=== PATIENT | male | born 1940 | race Hispanic/Latino ===

== ENCOUNTER 2021-03-19 22:20 | Inpatient (IN) | payer OTHER ==
[~2021-03-19] VITALS: Ht 91.4 cm; Wt 68.2 kg
[~2021-03-19 22:20] MED LIST: ASCO100031 PO; ASPI81TA40 PO; FERS325 PO; FISH1CAP63 PO; LEVO500T89 PO; NITR100C9 PO; OLME5TAB6 PO; OMEG100014 PO; SIMV-43 PO
[2021-03-19 23:05] LABS: BASOPHILS % (AUTO) 0.5 % (0.0-5.0); EOSINOPHILS % (AUTO) 2.1 % (0.0-8.0); HEMATOCRIT 26.4 % (42-54); LYMPHOCYTES % (AUTO) 11.3 % (21.0-51.0); MEAN CORPUSCULAR HEMOGLOBIN 30.4 pg (27.0-33.0); MEAN CORPUSCULAR HGB CONC 33.7 g/dL (32.0-36.0); MEAN CORPUSCULAR VOLUME 90.1 fL (79-99); MONOCYTES % (AUTO) 10.3 % (3.0-13.0); NEUTROPHILS % (AUTO) 75.5 % (40.0-77.0); PLATELET COUNT (AUTO) 40 K/uL (130-400); RED BLOOD CELL COUNT(AUTO) 2.93 MIL/uL (4.50-6.20); RED CELL DISTRIBUTION WIDTH 15.3 % (11.0-15.5); WHITE BLOOD COUNT (AUTO) 6.5 K/uL (4.8-10.8)
[2021-03-19 23:06] LABS: APPEARANCE,URINE CLOUDY (CLEAR); BILIRUBIN,URINE LARGE (NEGATIVE); COLOR,URINE RED (YELLOW); GLUCOSE, URINE (UA) 250 mg/dL (NEGATIVE); KETONES,URINE 40 mg/dL (NEGATIVE); LEUKOCYTE ESTERASE ,URINE LARGE (NEGATIVE); NITRATE,URINE POSITIVE (NEGATIVE); OCCULT BLOOD,URINE LARGE (NEGATIVE); PH,URINE 7.5 (5.0-8.0); PROTEIN,URINE >=300 mg/dL (NEGATIVE); UROBILINOGEN,URINE >=8.0 mg/dL (0.2-1.0)
[2021-03-19 23:14] LABS: RBC,URINE TNTC /HPF (0-1)
[2021-03-19 23:14] LABS: CREATININE 0.7 mg/dL (0.5-1.5); POTASSIUM 4.1 mmol/L (3.5-5.1)
[2021-03-19 23:15] LABS: BACTERIA,URINE Few /HPF (None Seen)
[2021-03-19 23:17] LABS: INR 1.06 (0.85-1.15); PROTHROMBIN TIME 11.5 SEC (9.6-11.6)
[2021-03-19 23:18] LABS: PARTIAL THROMBOPLASTIN TIME 37.5 SEC (26.3-35.5)
[2021-03-19 23:20] LABS: ALBUMIN 3.1 g/dL (3.5-5.0); BILIRUBIN,TOTAL 0.4 mg/dL (0.2-1.0); TOTAL PROTEIN, SERUM 6.1 g/dL (6.0-8.3)
[2021-03-20 03:15] LABS: HEMATOCRIT 24.8 % (42-54)
[2021-03-20] MEDS ORDERED: 0.9%NACL 1000ML 1,000 ML IV SCH (08:00)
[2021-03-20] MEDS ORDERED: OLME5TAB6 PO (08:28)
[2021-03-20] MEDS ORDERED: ASCO500C18 PO (08:28)
[2021-03-20] MEDS ORDERED: FERR-72 PO (08:28)
[2021-03-20] MEDS ORDERED: SIMV-43 PO (08:28)
[2021-03-20] MEDS ORDERED: ASPI-1443 PO (08:28)
[2021-03-20] MEDS: CEFTRIAXONE 1G VIAL IVP SCH (08:56)
[2021-03-20 08:59] LABS: HEMATOCRIT 21.8 % (42-54)
[2021-03-20] MEDS ORDERED: 0.9%NACL 1000ML 250 ML IV SCH (09:02)
[2021-03-20] MEDS ORDERED: 0.9%NACL 1000ML 1,000 ML IV STA (09:33)
[2021-03-20] MEDS ORDERED: NOREPINEPHRIN 4MG/NS 250ML 250 ML IV SCH (10:00)
[2021-03-20] MEDS ORDERED: ZOSYN 3.375GM+NS 50ML 3.38 GM in 0.9%NACL 50ML 50 ML IV SCH (10:00)
[2021-03-20] MEDS ORDERED: ACETAMINOPHEN 650 MG SUPPOSITORY RC PRN (10:00)
[2021-03-20] MEDS ORDERED: ZOSYN 3.375GM+NS 50ML 50 ML ONE (10:15)
[2021-03-20] MEDS ORDERED: 0.9%NACL 100ML 100 ML ONE (10:15)
[2021-03-20] MEDS: ZOSYN 3.375GM+NS 50ML 50 ML IV SCH ×2 (10:30→21:04)
[2021-03-20] MEDS ORDERED: PANTOPRAZOLE 40 MG/VIAL IVP SCH (15:00)
[2021-03-20 17:08] LABS: HEMATOCRIT 28.8 % (42-54); MEAN CORPUSCULAR HEMOGLOBIN 29.2 pg (27.0-33.0); MEAN CORPUSCULAR HGB CONC 33.3 g/dL (32.0-36.0); MEAN CORPUSCULAR VOLUME 87.5 fL (79-99); RED BLOOD CELL COUNT(AUTO) 3.29 MIL/uL (4.50-6.20); RED CELL DISTRIBUTION WIDTH 16.9 % (11.0-15.5); WHITE BLOOD COUNT (AUTO) 7.9 K/uL (4.8-10.8)
[2021-03-20] MEDS: LACTATED RINGERS 1000ML 1,000 ML IV SCH ×2 (18:00→20:38)
[2021-03-20] MEDS ORDERED: PANTOPRAZOLE 40 MG/VIAL ONE (19:13)
[2021-03-20] MEDS ORDERED: ZOSYN 3.375GM+NS 50ML 50 ML IV SCH (21:00)
[2021-03-21] VITALS (7 sets, daily range): BP systolic 103–138; BP diastolic 56–71
[2021-03-21 00:38] LABS: HEMATOCRIT 22.2 % (42-54); MEAN CORPUSCULAR HEMOGLOBIN 29.2 pg (27.0-33.0); MEAN CORPUSCULAR HGB CONC 34.2 g/dL (32.0-36.0); MEAN CORPUSCULAR VOLUME 85.4 fL (79-99); RED BLOOD CELL COUNT(AUTO) 2.6 MIL/uL (4.50-6.20); RED CELL DISTRIBUTION WIDTH 17.7 % (11.0-15.5); WHITE BLOOD COUNT (AUTO) 6.6 K/uL (4.8-10.8)
[2021-03-21] MEDS: LACTATED RINGERS 1000ML 1,000 ML IV SCH ×4 (02:00→22:22)
[2021-03-21 05:26] LABS: ALBUMIN 2.5 g/dL (3.5-5.0); BASOPHILS % (AUTO) 0.6 % (0.0-5.0); BILIRUBIN,TOTAL 0.6 mg/dL (0.2-1.0); CREATININE 0.8 mg/dL (0.5-1.5); EOSINOPHILS % (AUTO) 1.7 % (0.0-8.0); HEMATOCRIT 23.1 % (42-54); LYMPHOCYTES % (AUTO) 11.8 % (21.0-51.0); MEAN CORPUSCULAR HGB CONC 34.2 g/dL (32.0-36.0); MEAN CORPUSCULAR VOLUME 84.9 fL (79-99); MONOCYTES % (AUTO) 10.7 % (3.0-13.0); NEUTROPHILS % (AUTO) 74.8 % (40.0-77.0); PLATELET COUNT (AUTO) 39 K/uL (130-400); POTASSIUM 3.6 mmol/L (3.5-5.1); RED BLOOD CELL COUNT(AUTO) 2.72 MIL/uL (4.50-6.20); RED CELL DISTRIBUTION WIDTH 17.9 % (11.0-15.5); TOTAL PROTEIN, SERUM 5.1 g/dL (6.0-8.3); WHITE BLOOD COUNT (AUTO) 5.3 K/uL (4.8-10.8)
[2021-03-21] MEDS: ZOSYN 3.375GM+NS 50ML 50 ML IV SCH ×2 (09:53→22:21)
[2021-03-21] MEDS: PANTOPRAZOLE 40 MG/VIAL IVP SCH (09:53)
[2021-03-21] MEDS: POLYETHYLENE GLYCOL 3350 17 GM POWD.PACK PO SCH (09:53)
[2021-03-21] MEDS: CEFTRIAXONE 1G VIAL IVP SCH (09:53)
[2021-03-21 12:56] LABS: INR 1.1 (0.85-1.15); PROTHROMBIN TIME 11.9 SEC (9.6-11.6)
[2021-03-21 12:57] LABS: PARTIAL THROMBOPLASTIN TIME 36.4 SEC (26.3-35.5)
[2021-03-22 00:26] LABS: HEMATOCRIT 20.6 % (42-54)
[2021-03-22] MEDS ORDERED: 0.9% NACL 250ML 250 ML ONE (02:02)
[2021-03-22] MEDS: ACETAMINOPHEN 325 MG TAB PO PRN (04:13)
[2021-03-22 04:14] VITALS: BP 158/83
[2021-03-22 08:00] VITALS: BP 134/72
[2021-03-22 08:21] LABS: HEMATOCRIT 25.1 % (42-54); MEAN CORPUSCULAR HEMOGLOBIN 28.8 pg (27.0-33.0); MEAN CORPUSCULAR HGB CONC 33.9 g/dL (32.0-36.0); MEAN CORPUSCULAR VOLUME 85.1 fL (79-99); RED BLOOD CELL COUNT(AUTO) 2.95 MIL/uL (4.50-6.20); RED CELL DISTRIBUTION WIDTH 16.3 % (11.0-15.5); WHITE BLOOD COUNT (AUTO) 5.4 K/uL (4.8-10.8)
[2021-03-22 08:29] LABS: CREATININE 0.8 mg/dL (0.5-1.5); POTASSIUM 3.6 mmol/L (3.5-5.1)
[2021-03-22 08:40] LABS: INR 1.16 (0.85-1.15); PROTHROMBIN TIME 12.5 SEC (9.6-11.6)
[2021-03-22] MEDS: PANTOPRAZOLE 40 MG/VIAL IVP SCH (10:00)
[2021-03-22] MEDS: ZOSYN 3.375GM+NS 50ML 50 ML IV SCH ×2 (10:00→20:11)
[2021-03-22] MEDS: CEFTRIAXONE 1G VIAL IVP SCH (10:00)
[2021-03-22] MEDS: POLYETHYLENE GLYCOL 3350 17 GM POWD.PACK PO SCH (10:01)
[2021-03-22] MEDS: HONEY 1 APPL/ML TUBE TP SCH (10:01)
[2021-03-22 11:42] VITALS: BP 174/87
[2021-03-22] MEDS ORDERED: POTASSIUM CHLORIDE 20MEQ/100ML 100 ML IV PRN (13:00)
[2021-03-22] MEDS ORDERED: LIDOCAINE HCL-MPF 1% 2ML VIAL IV PRN (13:00)
[2021-03-22] MEDS ORDERED: POTASSIUM CHLORIDE 10% ELIXIR 20 MEQ/15 ML UDCUP PO PRN (13:00)
[2021-03-22] MEDS: LACTATED RINGERS 1000ML 1,000 ML IV SCH ×2 (15:20→18:00)
[2021-03-22 16:00] VITALS: BP 132/72
[2021-03-22 19:52] VITALS: BP 154/84
[2021-03-23] VITALS (31 sets, daily range): BP systolic 85–199; BP diastolic 49–108
[2021-03-23] MEDS: LACTATED RINGERS 1000ML 1,000 ML IV SCH ×3 (02:00→23:54)
[2021-03-23 02:12] LABS: MEAN CORPUSCULAR HGB CONC 33.9 g/dL (32.0-36.0); MEAN CORPUSCULAR VOLUME 85.5 fL (79-99); PLATELET COUNT (AUTO) 38 K/uL (130-400); RED BLOOD CELL COUNT(AUTO) 2.07 MIL/uL (4.50-6.20); RED CELL DISTRIBUTION WIDTH 16.9 % (11.0-15.5)
[2021-03-23 02:22] LABS: HEMATOCRIT 17.7 % (42-54)
[2021-03-23 02:27] LABS: BILIRUBIN,TOTAL 0.3 mg/dL (0.2-1.0); CREATININE 0.9 mg/dL (0.5-1.5); POTASSIUM 3.7 mmol/L (3.5-5.1); TOTAL PROTEIN, SERUM 4.2 g/dL (6.0-8.3)
[2021-03-23] MEDS: POLYETHYLENE GLYCOL 3350 17 GM POWD.PACK PO SCH (09:00)
[2021-03-23] MEDS: HONEY 1 APPL/ML TUBE TP SCH (09:00)
[2021-03-23] MEDS: ZOSYN 3.375GM+NS 50ML 50 ML IV SCH ×2 (12:22→22:37)
[2021-03-23] MEDS: FUROSEMIDE 20MG VIAL IV SCH (12:22)
[2021-03-23] MEDS: PANTOPRAZOLE 40 MG/VIAL IVP SCH (12:22)
[2021-03-23] MEDS: DEXAMETHASONE SOD PHOSPHATE 4 MG/ML 1ML VIAL IVP SCH (12:22)
[2021-03-23] MEDS: CEFTRIAXONE 1G VIAL IVP SCH (12:22)
[2021-03-23] MEDS: ACETAMINOPHEN 325 MG TAB PO SCH (12:24)
[2021-03-23 13:07] LABS: HEMATOCRIT 23.2 % (42-54)
[2021-03-23] MEDS ORDERED: KETAMINE 50MG/ML SYRINGE 50 MG/ML DISP.SYRIN IV ONE (18:04)
[2021-03-23] MEDS ORDERED: PROPOFOL 10 MG/ML 20ML VIAL IV ONE (18:05)
[2021-03-23] MEDS ORDERED: SUCCINYLCHOLINE 200MG/10ML SYR ONE (18:05)
[2021-03-23] MEDS ORDERED: LIDOCAINE PF 100MG/5ML (2%) SYRINGE 5ML ONE (18:06)
[2021-03-23] MEDS ORDERED: EPHEDRINE SULFATE 50 MG/ML AMPULE ONE (18:14)
[2021-03-23] MEDS ORDERED: HYDRALAZINE 20MG/ML VIAL ONE (19:06)
[2021-03-23] MEDS ORDERED: ESMOLOL HCL 10 MG/ML 10 ML VIAL ONE (19:25)
[2021-03-23] MEDS ORDERED: ALBUMIN (HUMAN) 5% 250 ML IV ONE ×2 (19:49→20:31)
[2021-03-23 20:50] LABS: HEMATOCRIT 22.5 % (42-54)
[2021-03-23 23:34] LABS: INR 1.29 (0.85-1.15); PROTHROMBIN TIME 13.7 SEC (9.6-11.6)
[2021-03-24] VITALS (9 sets, daily range): BP systolic 120–181; BP diastolic 55–91
[2021-03-24 00:54] LABS: HEMATOCRIT 16.9 % (42-54)
[2021-03-24 06:13] LABS: HEMATOCRIT 22.4 % (42-54); MEAN CORPUSCULAR HEMOGLOBIN 29.9 pg (27.0-33.0); MEAN CORPUSCULAR HGB CONC 35.7 g/dL (32.0-36.0); MEAN CORPUSCULAR VOLUME 83.6 fL (79-99); RED BLOOD CELL COUNT(AUTO) 2.68 MIL/uL (4.50-6.20); RED CELL DISTRIBUTION WIDTH 14.9 % (11.0-15.5); WHITE BLOOD COUNT (AUTO) 6.5 K/uL (4.8-10.8)
[2021-03-24 06:26] LABS: CREATININE 0.8 mg/dL (0.5-1.5); POTASSIUM 3.6 mmol/L (3.5-5.1)
[2021-03-24] MEDS: POLYETHYLENE GLYCOL 3350 17 GM POWD.PACK PO SCH (09:00)
[2021-03-24] MEDS: PANTOPRAZOLE 40 MG/VIAL IVP SCH (09:46)
[2021-03-24] MEDS: HONEY 1 APPL/ML TUBE TP SCH (09:47)
[2021-03-24] MEDS: ZOSYN 3.375GM+NS 50ML 50 ML IV SCH ×2 (09:47→19:29)
[2021-03-24] MEDS: ACETAMINOPHEN 325 MG TAB PO SCH (11:00)
[2021-03-24] MEDS: DEXAMETHASONE SOD PHOSPHATE 4 MG/ML 1ML VIAL IVP SCH (11:00)
[2021-03-24] MEDS: FUROSEMIDE 20MG VIAL IV SCH (11:00)
[2021-03-24] MEDS: LACTATED RINGERS 1000ML 1,000 ML IV SCH ×2 (11:37→19:30)
[2021-03-24 13:00] LABS: HEMATOCRIT 22.6 % (42-54)
[2021-03-24 19:16] LABS: HEMATOCRIT 22.7 % (42-54)
[2021-03-24] MEDS: ACETAMINOPHEN 325 MG TAB PO PRN (23:11)
[2021-03-25 01:11] LABS: HEMATOCRIT 20.3 % (42-54)
[2021-03-25] MEDS ORDERED: 0.9% NACL 250ML 250 ML ONE (01:35)
[2021-03-25 03:23] VITALS: BP 160/78
[2021-03-25] MEDS: LACTATED RINGERS 1000ML 1,000 ML IV SCH ×2 (05:13→14:10)
[2021-03-25 07:00] VITALS: BP 177/95
[2021-03-25 07:47] LABS: HEMATOCRIT 27.3 % (42-54)
[2021-03-25] MEDS: HONEY 1 APPL/ML TUBE TP SCH (08:13)
[2021-03-25] MEDS: PANTOPRAZOLE 40 MG/VIAL IVP SCH (08:13)
[2021-03-25] MEDS: ZOSYN 3.375GM+NS 50ML 50 ML IV SCH ×2 (08:13→19:32)
[2021-03-25] MEDS: POLYETHYLENE GLYCOL 3350 17 GM POWD.PACK PO SCH (08:23)
[2021-03-25 11:00] VITALS: BP 144/75
[2021-03-25] MEDS: DEXAMETHASONE SOD PHOSPHATE 4 MG/ML 1ML VIAL IVP SCH (11:00)
[2021-03-25] MEDS: FUROSEMIDE 20MG VIAL IV SCH (11:00)
[2021-03-25] MEDS: ACETAMINOPHEN 325 MG TAB PO SCH (11:00)
[2021-03-25] MEDS ORDERED: HYDRALAZINE HCL 10 MG TABLET PO PRN (11:30)
[2021-03-25] MEDS: LOPERAMIDE HCL 2 MG CAP PO PRN ×2 (13:33→23:26)
[2021-03-25] MEDS: METRONIDAZOLE 500MG/100ML BAG 100 ML IVPB SCH ×2 (13:33→22:17)
[2021-03-25 15:00] VITALS: BP 148/86
[2021-03-25 19:13] LABS: HEMATOCRIT 26.5 % (42-54)
[2021-03-25] MEDS: LOSARTAN 50 MG TABLET PO SCH (19:32)
[2021-03-25 19:43] VITALS: BP 128/71
[2021-03-25 23:19] VITALS: BP 151/81
[2021-03-25] MEDS: ACETAMINOPHEN 325 MG TAB PO PRN (23:57)
[2021-03-26] MEDS: LACTATED RINGERS 1000ML 1,000 ML IV SCH ×3 (01:57→19:35)
[2021-03-26] MEDS: LOPERAMIDE HCL 2 MG CAP PO PRN ×2 (03:42→18:29)
[2021-03-26 03:49] VITALS: BP 146/95
[2021-03-26 06:17] LABS: HEMATOCRIT 25.4 % (42-54); MEAN CORPUSCULAR HEMOGLOBIN 30.5 pg (27.0-33.0); MEAN CORPUSCULAR HGB CONC 35.4 g/dL (32.0-36.0); MEAN CORPUSCULAR VOLUME 86.1 fL (79-99); RED BLOOD CELL COUNT(AUTO) 2.95 MIL/uL (4.50-6.20); RED CELL DISTRIBUTION WIDTH 15.1 % (11.0-15.5); WHITE BLOOD COUNT (AUTO) 6.9 K/uL (4.8-10.8)
[2021-03-26 06:25] LABS: CREATININE 0.6 mg/dL (0.5-1.5); POTASSIUM 3.1 mmol/L (3.5-5.1)
[2021-03-26] MEDS: METRONIDAZOLE 500MG/100ML BAG 100 ML IVPB SCH ×3 (06:26→22:37)
[2021-03-26 07:00] VITALS: BP 145/90
[2021-03-26] MEDS ORDERED: AMINOCAPROIC ACID 5,000MG VIAL IV SCH (07:00)
[2021-03-26] MEDS: POLYETHYLENE GLYCOL 3350 17 GM POWD.PACK PO SCH (07:43)
[2021-03-26] MEDS: PANTOPRAZOLE 40 MG/VIAL IVP SCH (08:42)
[2021-03-26] MEDS: AMINOCAPROIC ACID IV SCH (08:42)
[2021-03-26] MEDS: [UNRECOGNIZED DRUG - OTHER] IV SCH (08:42)
[2021-03-26] MEDS: ZOSYN 3.375GM+NS 50ML 50 ML IV SCH ×2 (08:42→19:35)
[2021-03-26] MEDS: HONEY 1 APPL/ML TUBE TP SCH (08:45)
[2021-03-26 11:00] VITALS: BP 140/83
[2021-03-26] MEDS: DEXAMETHASONE SOD PHOSPHATE 4 MG/ML 1ML VIAL IVP SCH (11:00)
[2021-03-26] MEDS: FUROSEMIDE 20MG VIAL IV SCH (11:00)
[2021-03-26] MEDS: ACETAMINOPHEN 325 MG TAB PO SCH (11:00)
[2021-03-26 15:00] VITALS: BP 121/69
[2021-03-26 18:09] LABS: HEMATOCRIT 24.9 % (42-54)
[2021-03-26] MEDS: IPRATROPIUM/ALBUTEROL SULFATE 3 ML SOLUTION IH SCH ×2 (18:36→23:25)
[2021-03-26] MEDS: LOSARTAN 50 MG TABLET PO SCH (19:35)
[2021-03-26 20:06] VITALS: BP 104/64
[2021-03-26 23:28] VITALS: BP 106/51
[2021-03-27] MEDS ORDERED: FUROSEMIDE 20MG VIAL IVP ONE (00:30)
[2021-03-27] MEDS: [UNRECOGNIZED DRUG - OTHER] IV SCH (02:26)
[2021-03-27] MEDS: AMINOCAPROIC ACID IV SCH (02:26)
[2021-03-27 04:11] VITALS: BP 99/57
[2021-03-27] MEDS: METRONIDAZOLE 500MG/100ML BAG 100 ML IVPB SCH ×3 (05:12→20:08)
[2021-03-27] MEDS ORDERED: FUROSEMIDE 40MG VIAL ONE (06:23)
[2021-03-27] MEDS: FUROSEMIDE 40MG VIAL IV SCH (06:26)
[2021-03-27] MEDS: KCL 20 MEQ ERTAB PO PRN ×3 (06:28→23:52)
[2021-03-27] MEDS: LACTATED RINGERS 1000ML 1,000 ML IV SCH ×2 (07:54→17:54)
[2021-03-27 08:12] VITALS: BP 114/60
[2021-03-27] MEDS: POLYETHYLENE GLYCOL 3350 17 GM POWD.PACK PO SCH (09:00)
[2021-03-27] MEDS: LOPERAMIDE HCL 2 MG CAP PO PRN (09:30)
[2021-03-27] MEDS: ZOSYN 3.375GM+NS 50ML 50 ML IV SCH ×2 (09:31→20:09)
[2021-03-27] MEDS: PANTOPRAZOLE 40 MG/VIAL IVP SCH (09:31)
[2021-03-27 10:05] LABS: ALBUMIN 2.2 g/dL (3.5-5.0); BILIRUBIN,TOTAL 0.8 mg/dL (0.2-1.0); CREATININE 0.9 mg/dL (0.5-1.5); POTASSIUM 3.2 mmol/L (3.5-5.1); TOTAL PROTEIN, SERUM 4.3 g/dL (6.0-8.3)
[2021-03-27] MEDS: DEXAMETHASONE SOD PHOSPHATE 4 MG/ML 1ML VIAL IVP SCH (11:00)
[2021-03-27] MEDS: ACETAMINOPHEN 325 MG TAB PO SCH (11:00)
[2021-03-27] MEDS: FUROSEMIDE 20MG VIAL IV SCH (11:00)
[2021-03-27 12:01] VITALS: BP 111/55
[2021-03-27] MEDS: HONEY 1 APPL/ML TUBE TP SCH (12:29)
[2021-03-27 16:00] VITALS: BP 122/69
[2021-03-27 20:00] VITALS: BP 127/66
[2021-03-27] MEDS: LOSARTAN 50 MG TABLET PO SCH (20:09)
[2021-03-27] MEDS ORDERED: FUROSEMIDE 40MG VIAL IV ONE (22:00)
[2021-03-28] VITALS: BP 122/68
[2021-03-28] MEDS: ACETAMINOPHEN 325 MG TAB PO PRN (03:47)
[2021-03-28] MEDS: LACTATED RINGERS 1000ML 1,000 ML IV SCH ×3 (03:54→23:54)
[2021-03-28 04:00] VITALS: BP 109/66
[2021-03-28 06:03] LABS: HEMATOCRIT 24.9 % (42-54)
[2021-03-28] MEDS: FUROSEMIDE 40MG VIAL IV SCH (06:30)
[2021-03-28] MEDS: METRONIDAZOLE 500MG/100ML BAG 100 ML IVPB SCH ×3 (07:56→22:03)
[2021-03-28 08:24] VITALS: BP 134/72
[2021-03-28] MEDS ORDERED: PHARMACY COMMUNICATION MISC SCH (09:00)
[2021-03-28] MEDS ORDERED: FUROSEMIDE IVP SCH (09:00)
[2021-03-28] MEDS ORDERED: ALBUMIN 25% IVP SCH (09:00)
[2021-03-28] MEDS: POLYETHYLENE GLYCOL 3350 17 GM POWD.PACK PO SCH (09:00)
[2021-03-28] MEDS: ZOSYN 3.375GM+NS 50ML 50 ML IV SCH ×2 (09:11→22:01)
[2021-03-28] MEDS: PANTOPRAZOLE 40 MG/VIAL IVP SCH (09:11)
[2021-03-28] MEDS: FUROSEMIDE 20MG VIAL IV SCH (09:12)
[2021-03-28] MEDS: HONEY 1 APPL/ML TUBE TP SCH (09:12)
[2021-03-28] MEDS: DEXAMETHASONE SOD PHOSPHATE 4 MG/ML 1ML VIAL IVP SCH (09:13)
[2021-03-28] MEDS: ACETAMINOPHEN 325 MG TAB PO SCH (11:00)
[2021-03-28 11:56] VITALS: BP 123/76
[2021-03-28 16:00] VITALS: BP 135/78
[2021-03-28 19:21] LABS: HEMATOCRIT 23.3 % (42-54)
[2021-03-28 20:00] VITALS: BP 148/80
[2021-03-28] MEDS: LOSARTAN 50 MG TABLET PO SCH (22:00)
[2021-03-28] MEDS: ZOLPIDEM TARTRATE 5 MG TAB PO PRN (23:35)
[2021-03-29] VITALS: BP 119/61
[2021-03-29] MEDS: FUROSEMIDE 40MG VIAL IV SCH (03:06)
[2021-03-29 04:00] VITALS: BP 155/83
[2021-03-29] MEDS: METRONIDAZOLE 500MG/100ML BAG 100 ML IVPB SCH ×2 (05:58→13:38)
[2021-03-29] MEDS: IPRATROPIUM/ALBUTEROL SULFATE 3 ML SOLUTION IH SCH ×5 (07:02→23:53)
[2021-03-29 07:15] LABS: CREATININE 0.7 mg/dL (0.5-1.5)
[2021-03-29 07:18] LABS: BASOPHILS % (AUTO) 0.4 % (0.0-5.0); EOSINOPHILS % (AUTO) 1.6 % (0.0-8.0); HEMATOCRIT 23.6 % (42-54); LYMPHOCYTES % (AUTO) 11.1 % (21.0-51.0); MEAN CORPUSCULAR HEMOGLOBIN 30.6 pg (27.0-33.0); MEAN CORPUSCULAR HGB CONC 33.5 g/dL (32.0-36.0); MEAN CORPUSCULAR VOLUME 91.5 fL (79-99); MONOCYTES % (AUTO) 6.6 % (3.0-13.0); PLATELET COUNT (AUTO) 22 K/uL (130-400); RED BLOOD CELL COUNT(AUTO) 2.58 MIL/uL (4.50-6.20); RED CELL DISTRIBUTION WIDTH 17.4 % (11.0-15.5); WHITE BLOOD COUNT (AUTO) 6.9 K/uL (4.8-10.8)
[2021-03-29 07:26] LABS: POTASSIUM 2.8 mmol/L (3.5-5.1)
[2021-03-29 08:40] VITALS: BP 135/70
[2021-03-29] MEDS: ZOSYN 3.375GM+NS 50ML 50 ML IV SCH ×2 (09:36→20:13)
[2021-03-29] MEDS: PANTOPRAZOLE 40 MG/VIAL IVP SCH (09:36)
[2021-03-29] MEDS: POLYETHYLENE GLYCOL 3350 17 GM POWD.PACK PO SCH (09:36)
[2021-03-29] MEDS: HONEY 1 APPL/ML TUBE TP SCH (09:36)
[2021-03-29] MEDS: LACTATED RINGERS 1000ML 1,000 ML IV SCH ×2 (09:54→19:54)
[2021-03-29] MEDS: ACETAMINOPHEN 325 MG TAB PO SCH (11:00)
[2021-03-29] MEDS: FUROSEMIDE 20MG VIAL IV SCH (11:09)
[2021-03-29] MEDS: DEXAMETHASONE SOD PHOSPHATE 4 MG/ML 1ML VIAL IVP SCH (11:09)
[2021-03-29 12:42] VITALS: BP 125/66
[2021-03-29] MEDS: KCL 20 MEQ ERTAB PO PRN ×4 (14:15→21:44)
[2021-03-29 18:01] VITALS: BP 171/92
[2021-03-29] MEDS: LOSARTAN 50 MG TABLET PO SCH (20:13)
[2021-03-29 20:20] VITALS: BP 167/93
[2021-03-29] MEDS: ZOLPIDEM TARTRATE 5 MG TAB PO PRN (21:43)
[2021-03-29] MEDS: METRONIDAZOLE 500 MG TABLET PO SCH (21:43)
[2021-03-30] VITALS (7 sets, daily range): BP systolic 123–176; BP diastolic 66–96
[2021-03-30] MEDS: LACTATED RINGERS 1000ML 1,000 ML IV SCH (04:06)
[2021-03-30] MEDS: METRONIDAZOLE 500 MG TABLET PO SCH ×3 (05:47→21:15)
[2021-03-30] MEDS: IPRATROPIUM/ALBUTEROL SULFATE 3 ML SOLUTION IH SCH ×3 (06:56→18:31)
[2021-03-30] MEDS: POLYETHYLENE GLYCOL 3350 17 GM POWD.PACK PO SCH ×2 (09:00→09:12)
[2021-03-30] MEDS: PANTOPRAZOLE 40 MG/VIAL IVP SCH (09:04)
[2021-03-30] MEDS: HONEY 1 APPL/ML TUBE TP SCH (09:11)
[2021-03-30] MEDS: ZOSYN 3.375GM+NS 50ML 50 ML IV SCH ×2 (09:12→20:33)
[2021-03-30] MEDS ORDERED: FLUCONAZOLE 100 MG TAB PO ONE (09:35)
[2021-03-30] MEDS ORDERED: ALBUMIN (HUMAN) 25% 50 ML IV NR (09:36)
[2021-03-30] MEDS: ACETAMINOPHEN 325 MG TAB PO SCH (11:00)
[2021-03-30] MEDS: DEXAMETHASONE SOD PHOSPHATE 4 MG/ML 1ML VIAL IVP SCH (13:29)
[2021-03-30] MEDS: FUROSEMIDE 40MG VIAL IV SCH ×2 (13:34→20:33)
[2021-03-30] MEDS: LOSARTAN 50 MG TABLET PO SCH (20:33)
[2021-03-30] MEDS ORDERED: ZOLPIDEM TARTRATE 5 MG TAB PO PRN (22:00)
[2021-03-31] VITALS (7 sets, daily range): BP systolic 131–163; BP diastolic 73–88
[2021-03-31] MEDS: IPRATROPIUM/ALBUTEROL SULFATE 3 ML SOLUTION IH SCH ×5 (00:21→23:45)
[2021-03-31 03:55] LABS: HEMATOCRIT 23.4 % (42-54); MEAN CORPUSCULAR HEMOGLOBIN 30.2 pg (27.0-33.0); MEAN CORPUSCULAR HGB CONC 32.9 g/dL (32.0-36.0); MEAN CORPUSCULAR VOLUME 91.8 fL (79-99); PLATELET COUNT (AUTO) 14 K/uL (130-400); RED BLOOD CELL COUNT(AUTO) 2.55 MIL/uL (4.50-6.20); RED CELL DISTRIBUTION WIDTH 17.7 % (11.0-15.5); WHITE BLOOD COUNT (AUTO) 6.8 K/uL (4.8-10.8)
[2021-03-31 04:10] LABS: ALBUMIN 3.6 g/dL (3.5-5.0); BILIRUBIN,TOTAL 0.7 mg/dL (0.2-1.0); CREATININE 0.7 mg/dL (0.5-1.5); POTASSIUM 3.2 mmol/L (3.5-5.1); TOTAL PROTEIN, SERUM 5.6 g/dL (6.0-8.3)
[2021-03-31] MEDS: KCL 20 MEQ ERTAB PO PRN ×3 (04:19→10:06)
[2021-03-31] MEDS: METRONIDAZOLE 500 MG TABLET PO SCH ×3 (06:35→22:32)
[2021-03-31] MEDS: FUROSEMIDE 40MG VIAL IV SCH ×2 (09:24→22:31)
[2021-03-31] MEDS: POLYETHYLENE GLYCOL 3350 17 GM POWD.PACK PO SCH (09:24)
[2021-03-31] MEDS: ZOSYN 3.375GM+NS 50ML 50 ML IV SCH ×2 (09:24→22:31)
[2021-03-31] MEDS: PANTOPRAZOLE 40 MG/VIAL IVP SCH (09:24)
[2021-03-31] MEDS: HONEY 1 APPL/ML TUBE TP SCH (09:25)
[2021-03-31] MEDS: ACETAMINOPHEN 325 MG TAB PO SCH (11:00)
[2021-03-31] MEDS: DEXAMETHASONE SOD PHOSPHATE 4 MG/ML 1ML VIAL IVP SCH (11:00)
[2021-03-31] MEDS: LOSARTAN 50 MG TABLET PO SCH (22:32)
== END 2021-04-01 00:05 | DRG 853 ==
LOC: EDH 22:20 → OBSVTOIN 03-20 00:45 → EDHIP 03-20 00:45 → 3AH 03-20 23:55
PROVIDERS: ADMIT Internal Medicine; ATTEND Internal Medicine
PROC: 30233N1 Transfusion of Nonautologous Red Blood Cells into Peripheral Vein, Percutaneous Approach (ICD-10-PCS; 2021-03-20)
PROC: 30233R1 Transfusion of Nonautologous Platelets into Peripheral Vein, Percutaneous Approach (ICD-10-PCS; 2021-03-23)
PROC: 02HV33Z Insertion of Infusion Device into Superior Vena Cava, Percutaneous Approach (ICD-10-PCS; 2021-03-23)
PROC: 0T5B8ZZ Destruction of Bladder, Via Natural or Artificial Opening Endoscopic (ICD-10-PCS; principal; 2021-03-23 18:03)
PROC: 0TCB8ZZ Extirpation of Matter from Bladder, Via Natural or Artificial Opening Endoscopic (ICD-10-PCS; 2021-03-23 18:03)
PROC: 30233K1 Transfusion of Nonautologous Frozen Plasma into Peripheral Vein, Percutaneous Approach (ICD-10-PCS; 2021-03-24)
DX: A41.9 Sepsis, unspecified organism (principal); R65.21 Severe sepsis with septic shock; R57.8 Other shock; N13.6 Pyonephrosis; E87.1 Hypo-osmolality and hyponatremia; D62 Acute posthemorrhagic anemia; N02.9 Recurrent and persistent hematuria with unspecified morphologic changes; G82.20 Paraplegia, unspecified; E44.1 Mild protein-calorie malnutrition; D61.818 Other pancytopenia; Z68.45 Body mass index [BMI] 70 or greater, adult; N30.41 Irradiation cystitis with hematuria; Z66 Do not resuscitate; B96.5 Pseudomonas (aeruginosa) (mallei) (pseudomallei) as the cause of diseases classified elsewhere; L89.152 Pressure ulcer of sacral region, stage 2; I10 Essential (primary) hypertension; E78.5 Hyperlipidemia, unspecified; K57.30 Diverticulosis of large intestine without perforation or abscess without bleeding; L89.159 Pressure ulcer of sacral region, unspecified stage; N32.89 Other specified disorders of bladder; Z85.46 Personal history of malignant neoplasm of prostate; Z87.440 Personal history of urinary (tract) infections; Z87.442 Personal history of urinary calculi; Z87.891 Personal history of nicotine dependence; Z93.59 Other cystostomy status; Z85.51 Personal history of malignant neoplasm of bladder; Z92.3 Personal history of irradiation; Z92.21 Personal history of antineoplastic chemotherapy; Z89.611 Acquired absence of right leg above knee; Z89.612 Acquired absence of left leg above knee
CPT/HCPCS: 36415; 36430; 71045; 74176; 80048; 80053; 81001; 82270; 82550; 83630; 83874; 84132; 84484; 85014; 85018; 85025; 85027; 85610; 85730; 86850; 86900; 86901; 86923; 86927; 87040; 87046; 87077; 87088; 87186; 87324; 93005; 94640; 94664; A4354; C1769; C1894; C9113; G0378; J0330; J0360; J0696; J1100; J1940; J2001; J2543; J2704; J3480; J3490; J7030; J7050; J7120; P9016; P9017; P9034; P9045; P9046; P9047